=== PATIENT | male | born 1945 | race Caucasian/White ===

== ENCOUNTER → 2016-09-10 | Outpatient (CLI) | payer OTHER, BC | LOC: FIMAGING 10:27 → EDSTATUS 10:28 | PROVIDERS: ATTEND Specialist ==

== ENCOUNTER → 2016-09-14 | Outpatient (CLI) | payer OTHER, BC | LOC: FIMAGING 07:49 | PROVIDERS: ATTEND Specialist | DX: J18.1 Lobar pneumonia, unspecified organism (principal); Z87.891 Personal history of nicotine dependence; I70.0 Atherosclerosis of aorta; N20.0 Calculus of kidney ==

== ENCOUNTER → 2016-11-03 | Outpatient (CLI) | payer OTHER, BC | LOC: FIMAGING 10:05 | PROVIDERS: ATTEND Specialist | DX: Z13.83 Encounter for screening for respiratory disorder NEC (principal) ==

== ENCOUNTER → 2017-04-20 | Outpatient (CLI) | payer OTHER, BC | LOC: FIMAGING 10:15 | PROVIDERS: ATTEND Internal Medicine Rheumatology | DX: Z13.820 Encounter for screening for osteoporosis (principal); M85.89 Other specified disorders of bone density and structure, multiple sites ==